=== PATIENT | female | born 1940 | race Caucasian/White ===

== ENCOUNTER → 2017-06-22 | Outpatient (CLI) | payer OTHER ==
[~2017-06-22] MED LIST: ALBUTEROL SULF8.5 GM INH; B COMPLEX; CALCIUM + VIT1 EACH PO; CELEBREX 200 M200 M1 PO; FOSAMAX 70 MG T70 MG PO; HYDROCODONE-AP1 EA11 PO; LEVOXYL112 MCG PO; LEXAPRO20 MG PO; LIORESAL 10 MG10 MG PO; MULTIVITAMINS PO; SYMBICORT160 MCG/4.; SYMBICORT160 MCG/4. INH; TRANSDERM-SCO1 PATCH TD; VITAMIN B12 PO; VITAMIN D35000 UNI1 PO; ZESTRIL10 MG PO; ZOCOR40 MG PO; [UNRECOGNIZED DRUG - OTHER] PO; [UNRECOGNIZED DRUG - OTHER] PO
== END ==
LOC: M.RAD 06-16 12:32
DX: Z12.31 Encounter for screening mammogram for malignant neoplasm of breast (principal); M81.0 Age-related osteoporosis without current pathological fracture; D51.1 Vitamin B12 deficiency anemia due to selective vitamin B12 malabsorption with proteinuria; E55.9 Vitamin D deficiency, unspecified; M85.88 Other specified disorders of bone density and structure, other site; Z78.0 Asymptomatic menopausal state

== ENCOUNTER 2017-11-15 23:53 | Emergency (ER) | payer OTHER ==
[~2017-11-15] VITALS: Ht 170.2 cm; Wt 63.5 kg
[2017-11-16 01:54] VITALS: BP 124/63
== END 2017-11-16 01:51 | disposition home or self-care (01) ==
LOC: M.ERS 23:53
DX: G45.3 Amaurosis fugax (principal); I10 Essential (primary) hypertension; E03.9 Hypothyroidism, unspecified; M19.90 Unspecified osteoarthritis, unspecified site; K21.9 Gastro-esophageal reflux disease without esophagitis; Z88.8 Allergy status to other drugs, medicaments and biological substances

== ENCOUNTER 2019-12-19 14:59 | Emergency (ER) | payer OTHER ==
[~2019-12-19] VITALS: Ht 170.2 cm; Wt 59.0 kg
[2019-12-19] MEDS ORDERED: NORCO 5-325 TA1 EAC2 PO (15:41)
[2019-12-19] MEDS ORDERED: DOXYCYCLINE 10100 MG PO (15:41)
[2019-12-19 15:50] VITALS: BP 117/59
== END 2019-12-19 15:50 | disposition home or self-care (01) ==
LOC: M.ERS 14:59
DX: N76.2 Acute vulvitis (principal); I10 Essential (primary) hypertension; E03.9 Hypothyroidism, unspecified; J45.909 Unspecified asthma, uncomplicated; M19.90 Unspecified osteoarthritis, unspecified site; K21.9 Gastro-esophageal reflux disease without esophagitis; Z88.8 Allergy status to other drugs, medicaments and biological substances; Z79.899 Other long term (current) drug therapy

== ENCOUNTER 2020-05-27 14:03 | Emergency (ER) | payer OTHER ==
[~2020-05-27] VITALS: Ht 170.2 cm; Wt 54.4 kg
[~2020-05-27 14:03] MED LIST changes: +DOXYCYCLINE 10100 MG PO; +NORCO 5-325 TA1 EAC2 PO
[2020-05-27] MEDS ORDERED: NORCO 5-325 TA1 EAC2 PO (15:26)
[2020-05-27 15:39] VITALS: BP 137/60
== END 2020-05-27 15:39 | disposition home or self-care (01) ==
LOC: M.ERS 14:03
DX: S32.10XA Unspecified fracture of sacrum, initial encounter for closed fracture (principal); I10 Essential (primary) hypertension; E03.9 Hypothyroidism, unspecified; M19.90 Unspecified osteoarthritis, unspecified site; K21.9 Gastro-esophageal reflux disease without esophagitis; J45.909 Unspecified asthma, uncomplicated; Z88.8 Allergy status to other drugs, medicaments and biological substances; Z79.899 Other long term (current) drug therapy; W01.0XXA Fall on same level from slipping, tripping and stumbling without subsequent striking against object, initial encounter; Y93.89 Activity, other specified; Y92.89 Other specified places as the place of occurrence of the external cause; Y99.9 Unspecified external cause status

== ENCOUNTER 2021-07-20 09:33 | Emergency (ER) | payer OTHER ==
[~2021-07-20] VITALS: Ht 170.2 cm; Wt 63.5 kg
[2021-07-20 10:24] LABS: URINE BILIRUBIN NEGATIVE (Negative); URINE BLOOD TRACE (Negative); URINE CLARITY CLEAR; URINE COLOR YELLOW; URINE GLUCOSE-RANDOM NEGATIVE (Negative); URINE KETONES TRACE (Negative); URINE LEUKOCYTES NEGATIVE (Negative); URINE NITRITE NEGATIVE (Negative); URINE PROTEIN 1+ (Negative); URINE SPECIFIC GRAVITY 1.015 (1.005-1.030)
[2021-07-20] MEDS ORDERED: NORFLEX100 MG PO (10:24)
[2021-07-20 10:30] VITALS: BP 137/70
== END 2021-07-20 10:31 | disposition home or self-care (01) ==
LOC: M.ERS 09:33
PROVIDERS: Physician Assistant
DX: M54.50 Low back pain, unspecified (principal); I10 Essential (primary) hypertension; E03.9 Hypothyroidism, unspecified; M19.90 Unspecified osteoarthritis, unspecified site; K21.9 Gastro-esophageal reflux disease without esophagitis; J45.909 Unspecified asthma, uncomplicated; Z79.2 Long term (current) use of antibiotics; Z79.899 Other long term (current) drug therapy